=== PATIENT | male | born 1985 | race African-American/Black ===

== ENCOUNTER 2019-04-24 19:11 | Emergency (ER) | payer BC, OTHER ==
[~2019-04-24] VITALS: Ht 167.6 cm; Wt 77.6 kg
[~2019-04-24 19:11] MED LIST: CATAPRES PO; EXCEDRIN ASA F1 EAC1; LISINOPRIL10 MG; NOHOMEMEDICATIONS; PENICILLIN V P500 MG PO; PROCTOCREAM-HC30 G1 RC; PROZAC 20 MG20 MG; TRAMADOL 50 MG50 MG PO; XANAX 1 MG TABLE1 MG PO
[2019-04-24] MEDS ORDERED: AUGMENTIN 875-1 EACH PO (19:48)
[2019-04-24 20:22] VITALS: BP 135/101
== END 2019-04-24 20:23 | disposition home or self-care (01) ==
LOC: ER 19:11
DX: K04.7 Periapical abscess without sinus (principal); S09.93XA Unspecified injury of face, initial encounter; W19.XXXA Unspecified fall, initial encounter; Y93.89 Activity, other specified; Y92.89 Other specified places as the place of occurrence of the external cause; Y99.8 Other external cause status

== ENCOUNTER 2021-05-06 17:37 | Inpatient (IN) | payer OTHER ==
[~2021-05-06] VITALS: Ht 167.6 cm; Wt 71.7 kg
[~2021-05-06 17:37] MED LIST changes: +AUGMENTIN 875-1 EACH PO
[2021-05-06 17:43] VITALS: BP 158/112
[2021-05-06 18:13] LABS: HEMATOCRIT 40.3 % (42.0-52.0); HEMOGLOBIN 13.7 gm/dL (14.0-18.0); MCH 32.2 pg (26.0-34.0); MCHC 33.9 g/dL (28.0-37.0); MCV 94.9 fL (80.0-100.0); RBC 4.24 mil/uL (4.50-6.00); RDW 12.4 % (10.5-14.5); WBC 5.6 thou/uL (4.0-11.0)
[2021-05-06 18:22] LABS: CALCIUM 8.5 mg/dL (8.5-10.1); CREATININE 0.7 mg/dL (0.7-1.3); POTASSIUM 3.5 mmol/L (3.5-5.1)
[2021-05-06 18:30] LABS: ALBUMIN 4.1 g/dL (3.4-5.0); TOTAL BILIRUBIN 1.1 mg/dL (0.2-1.0); TOTAL PROTEIN 8.5 g/dL (6.4-8.2)
[2021-05-07 05:24] LABS: CALCIUM 7.9 mg/dL (8.5-10.1); CREATININE 0.6 mg/dL (0.7-1.3); MAGNESIUM 1.2 mg/dL (1.8-2.4)
[2021-05-07 05:27] LABS: POTASSIUM 2.5 mmol/L (3.5-5.1)
[2021-05-07 10:34] VITALS: BP 141/87
[2021-05-07 11:00] VITALS: BP 150/110
[2021-05-07 11:01] VITALS: BP 141/87
--- NOTE | 2021-05-07 11:31 | EKG ---
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1985 Requested By: Janelle Walker Order Number: [id number] MD: Chad Boogie Measurements Intervals [place] Rate: 91 P: 47 UT: 155 QRS: -39 QRSD: 99 T: 52 QT: 396 QTc: 488 Interpretive Statements Sinus rhythm Probable left atrial enlargement Left axis deviation Borderline T wave abnormalities Borderline prolonged QT interval No previous ECG available for comparison Electronically Signed On 05-07-2021 11:31:16 HVAC SERVICE TECHNICIAN by Chad Boogie [email or web address] <ELECTRONICALLY SIGNED> By: Chad Boogie MD 05/07/21 1131 1803 1803 Chad Boogie MD /ELLE
--- NOTE | 2021-05-07 12:22 | NUR ---
Pt received to room 202 from ED around 1100. Pt is A&O x4, on RA, ST on the monitor. CIWA prt & seizure precautions in place. Electrolytes critically low, replacement started. Hypertensive. High fall precautions in place. Admission assessment performed, forms signed & posted in chart. Initial CIWA of 7. Pt educated regarding calling before getting up. Pt mom updated. Frequent rounding in place.
[2021-05-07 16:30] VITALS: BP 140/107
[2021-05-07 19:17] VITALS: BP 156/110
--- NOTE | 2021-05-07 22:55 | NUR ---
PT ALERT AND ORIENTED X4 WITH PERIODS OF CONFUSION. FOR EXAMPLE HE SAID SOMETHING WAS GOING ON AT HOME AND SAID HE WAS GETTING UP OUTOF HERE TO TAKE CARE OF THINGS. HIS MOM CALLED A FEW MINUES LATER AND SAID THERE WAS A BIRTHDAY PART GOING ON. PT WAS CONVINCED TO STAY IN HOSPITAL. BED DOWN CALL LIGHT IN REACH. BED ALARMIS ON. SIDE RAILS ARE PADDED.
[2021-05-07 23:47] VITALS: BP 181/114
[2021-05-08] VITALS (10 sets, daily range): BP systolic 143–172; BP diastolic 89–117
--- NOTE | 2021-05-08 00:36 | NUR ---
BP ELEVATED 181/114 P 107. NOTFIED ROLL ICER. ENALAPRILAT 1.25 GIVN IV ORDERED. ATIVAN 1 MG PO GIVEN FOR CIWA 6. PT ABLE TO ANSWER QUESTIONS APPROPRIATELY BUT MADE THE STATEMENT THAT YOU GUYS ARE MAKING ME PARANOID BY ALL THE MEDICATIONS YOU ARE GIVEING ME AROUND THE CLOCK. PT RESTLESS, GOINGTHROUGH BELONGINGS AND DROPPING THINGS IN THE ROOM FREQUENTY OFF OF HIS BS TABLE. WILL CONTINUE TO MONITOR PT FOR CHANGES.
[2021-05-08 00:38] LABS: HEMATOCRIT 36.1 % (42.0-52.0); HEMOGLOBIN 12.3 gm/dL (14.0-18.0); MCH 31.9 pg (26.0-34.0); MCV 93.9 fL (80.0-100.0); RBC 3.85 mil/uL (4.50-6.00); RDW 12.1 % (10.5-14.5); WBC 6.8 thou/uL (4.0-11.0)
[2021-05-08 00:50] LABS: CREATININE 0.7 mg/dL (0.7-1.3); POTASSIUM 3.4 mmol/L (3.5-5.1)
--- NOTE | 2021-05-08 01:43 | NUR ---
NOTIFIED CURATOR OF MANUSCRIPTS 160/117 AFTER ENALAPRILAT. WILL RECHECK AROUND 0400 ORDERED. NO ORDERS FOR NOW.
--- NOTE | 2021-05-08 04:40 | NUR ---
PT BECAME COMBATIVE AROUND 0340 DESPITE ATIVAN 2MG GIVEN. PT WAS PULLING OUT IN AND HT MONITOR OFF CHEST AND ATTEMPTING TO LEAVE HOSPITAL, SECURITY CALLED. SOFT WRIST RESTRAINTS APPLIED. PT'S MOTHER INFORMED OF INCREASED CONFUSION, MEDS GIVEN AND SOFT WRIST RESTRAINTS APPLIED. PT IS NOW SLEEPING QUIETLY.
--- NOTE | 2021-05-08 07:27 | NUR ---
PT HAS BEEN SLEEPING AFTER HALDOL 5MG IM. BP 150/90. HR 115. METOPROLOL AND 0600 HYDRALAZINE HELD ORDERED BY MP. NO SZ ACTIVITY NOTED LAST NIGHT. LAST CIWA 9.
--- NOTE | 2021-05-08 11:17 | EKG ---
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1985 Requested By: Manuel Chilel Order Number: [id number] MD: Chad Boogie Measurements Intervals [place] Rate: 118 P: 52 NC: 156 QRS: -50 QRSD: 99 T: 20 QT: 336 QTc: 471 Interpretive Statements Sinus tachycardia Left anterior fascicular block Low voltage, precordial leads Borderline prolonged QT interval Compared to ECG 05/06/2021 18:03:30 Left anterior fascicular block now present Low QRS voltage now present Sinus rhythm no longer present Left-axis deviation no longer present T-wave abnormality no longer present Electronically Signed On 05-08-2021 11:16:48 ASSISTANT TRACK AND FIELD COACH by Chad Boogie [email or web address] <ELECTRONICALLY SIGNED> By: Chad Boogie MD 05/08/21 1116 181 181 Chad Boogie MD /EPI
--- NOTE | 2021-05-08 22:45 | NUR ---
NURSING NOTE: PT ALERT AND ORIENTED X4, MOVES ALL EXTREMITIES AND FOLLOWS COMMANDS. CALM AND COOPERATIVE AT THIS TIME. DENIES PAIN. DOES C/O FEELING ANXIOUS; MEDICATION GIVEN ORDERED AND IS EFFECTIVE PER PATIENT. ALL VS AND ASSESSMENTS CHARTED. RESTING WITHOUT DISTRESS AT THIS TIME.
--- NOTE | 2021-05-09 04:28 | NUR ---
NURSING NOTE: ELEVATED HEART RATE: AT APPROXIMATELY 0210 THIS MORNING, PT GOT UP TO WASH UP AND USE THE BATHROOM. DURING THAT TIME, HIS HEART RATE ELVATED AND SUSTAINED IN THE 130'S FOR APPROXIMATELY 10 MINUTES. WHEN PATIENT GOT BACK INTO BED, HEART RATE DECREASED TO THE 90'S. PT DENIED CP OR ANY OTHER CARDIAC RELATED SYMPTOMS. ALL VS AND ASSESSMENTS CHARTED. NO DISTRESS NOTED AT THIS TIME.
[2021-05-09 05:01] LABS: CALCIUM 8.8 mg/dL (8.5-10.1); CREATININE 0.6 mg/dL (0.7-1.3); POTASSIUM 3.4 mmol/L (3.5-5.1)
[2021-05-09 05:02] LABS: HEMATOCRIT 55.3 % (42.0-52.0); MCH 31.4 pg (26.0-34.0); MCHC 32.6 g/dL (28.0-37.0); MCV 96.3 fL (80.0-100.0); RBC 5.74 mil/uL (4.50-6.00); RDW 12.4 % (10.5-14.5); WBC 4.5 thou/uL (4.0-11.0)
[2021-05-09 05:28] VITALS: BP 143/103
[2021-05-09 06:06] LABS: HEMOGLOBIN 18.1 gm/dL (14.0-18.0)
[2021-05-09 07:20] VITALS: BP 184/138
[2021-05-09] MEDS ORDERED: KEPPRA 500 MG500 MG PO (09:53)
[2021-05-09] MEDS ORDERED: HYDRALAZINE 5050 MG PO (09:53)
[2021-05-09] MEDS ORDERED: NORVASC10 MG PO (09:53)
[2021-05-09] MEDS ORDERED: METOPROLOL TART25 MG PO (09:53)
[2021-05-09] MEDS ORDERED: PEPCID20 MG PO (09:54)
[2021-05-09] MEDS ORDERED: VITAMIN B-1100 M2 PO (09:54)
[2021-05-09] MEDS ORDERED: FOLIC ACID1 MG PO (09:54)
[2021-05-09] MEDS ORDERED: A THRU Z ADVAN1 EAC1 PO (09:55)
[2021-05-09 10:01] VITALS: BP 159/114
--- NOTE | 2021-05-09 10:30 | NUR ---
DISCHARGED PATIENT. EXPLAINED DISCHARGE INSTRUCTIONS TO PATIENT AND MOTHER. HIGHLIGHTED AND EXPLAINED NEW ANS DISCONTINUED MEDICATIONS. EXPLAINED TO PATIENT HE WILL NEED TO FOLLOW UP WITH HIS PRIMARY CARE PHYSICIAN IN 2 WEEKS OR SOONER IF NEEDED. THEY BOTH STATED THEY UNDERSTOOD AND DENIED ANY QUESTIONS. IV REMOVED WITH TIP INTACT, AD OPERATIONS SPECIALIST REMOVED. PATIENT TAKING OFF FLOOR IN A WHEEL CHAIR.
[2021-05-09 10:33] VITALS: BP 159/114
== END 2021-05-09 11:10 | disposition home or self-care (01) | DRG 101 ==
LOC: ER 17:37 → EROBS 20:41 → 2N 05-07 10:49
PROVIDERS: Nurse Practitioner Family; ADMIT Hospitalist; ATTEND Hospitalist
DX: G40.909 Epilepsy, unspecified, not intractable, without status epilepticus (principal); F10.239 Alcohol dependence with withdrawal, unspecified; M62.82 Rhabdomyolysis; Z20.822 Contact with and (suspected) exposure to COVID-19; Y90.1 Blood alcohol level of 20-39 mg/100 ml; I10 Essential (primary) hypertension; E83.42 Hypomagnesemia; D69.6 Thrombocytopenia, unspecified; R74.01 Elevation of levels of liver transaminase levels; Z91.14 Patient's other noncompliance with medication regimen; E87.6 Hypokalemia; F41.9 Anxiety disorder, unspecified; F32.A Depression, unspecified
CPT/HCPCS: 10081